=== PATIENT | female | born 1995 | race Caucasian/White ===

== ENCOUNTER 2017-08-23 22:31 | Emergency (ER) | payer MEDICAID ==
[2017-08-23] MEDS ORDERED: Azithromycin 250 MG Tab PO ONE (22:47)
[2017-08-23] MEDS ORDERED: Acetaminophen/Codeine 120-12 MG/5 ML Soln 118 ML Bot PO ONE (22:47)
[2017-08-23 23:10] VITALS: BP 120/78
--- NOTE | 2017-08-24 01:37 | ER ---
DATE SEEN: 08/23/2017 TIME SEEN: 2245 hours. CHIEF COMPLAINT: Cough. HISTORY OF PRESENT ILLNESS: This is a 22-year-old female with a cough for 3 days, sudden onset, associated with nasal congestion and fever, and also causes pain when she coughs. PAST MEDICAL HISTORY: No active medical problems. ALLERGIES: None. SOCIAL HISTORY: Does not smoke. PHYSICAL EXAMINATION: GENERAL: She is afebrile and normotensive. EARS, NOSE, AND THROAT: Negative. NECK: Supple. CHEST: Clear. CARDIOVASCULAR: Normal. IMPRESSION: Acute bronchitis. Treatment is Z-Praneeth and Tanja with codeine. /[id number] MORRIS/GUILLERMO
== END 2017-08-23 22:57 | disposition home or self-care (01) ==
LOC: FB.ED 22:31
DX: J20.9 Acute bronchitis, unspecified (principal)
CPT/HCPCS: 99282; A9270

== ENCOUNTER 2019-09-23 09:02 | Emergency (ER) | payer MEDICAID ==
--- NOTE | 2019-09-23 09:36 | EDM.PDOC ---
ED HPI GENERAL MEDICAL PROBLEM - General Chief Complaint: DAYTIME BABYSITTER Problem Stated Complaint: 6 WEEKS CRAMPING AND BLEEDING Time Seen by Provider: 09/23/19 09:32 Source of Information: Reports: Patient History Limitations: Reports: No Limitations - History of Present Illness INITIAL COMMENTS - FREE TEXT/NARRATIVE: [id number] @6wks by LMP (08/10/19) presents with pelvic cramping since last week, began to have vaginal spotting this morning. Cramping has not worsened. Blood type is A pos per [facility]. Location: Reports: Pelvis Severity: Mild Abdominal Pain Score (Numeric/FACES): 6 - Related Data Allergies Allergy/AdvReac Type Severity Reaction Status Date / Time No Known Allergies Allergy Verified 02/09/18 04:08 Home Meds: Home Meds No122/Iron/Folic Acid [ Multi Tablet] 1 tab PO DAILY 09/23/19 [History] Past Medical History DAYTIME BABYSITTER History: Reports: Other DAYTIME BABYSITTER History: [id number] - Past Surgical History HEENT Surgical History: Reports: Adenoidectomy, Tonsillectomy Female Surgical History: Reports: Section, Other (See Below) Other Female Surgeries/Procedures: X 2. Social & Family History - Family History Family Medical History: Noncontributory - Tobacco Use Smoking Status *Q: Never Smoker - Caffeine Use Caffeine Use: Reports: Soda - Alcohol Use Alcohol Use History: No ED ROS GENERAL - Review of Systems Review Of Systems: Comprehensive ROS is negative, except as noted in HPI. ED EXAM - Physical Exam Exam: See Below Exam Limited By: No Limitations General Appearance: Alert, WD/WN, No Apparent Distress Throat/Mouth: No Airway Compromise Head: Atraumatic, Normocephalic Neck: Full Range of Motion Respiratory/Chest: No Respiratory Distress, Lungs Clear Cardiovascular: Regular Rate, Rhythm, No Murmur GI/Abdominal Exam: Normal Bowel Sounds, Soft, No Distention, Tender (mild suprapubic) Extremities: Normal Range of Motion Neurological: Alert, Normal Cognition Psychiatric: Normal Affect, Normal Mood Skin Exam: Warm, Dry, Intact Course - Vital Signs Last Recorded V/S: Last Vital Signs Temp 36.8 C 09/23/19 09:14 Pulse 86 09/23/19 09:14 Resp 16 09/23/19 09:14 BP 112/71 07/27/20 09:14 Pulse Ox 100 09/23/19 09:14 - Orders/Labs/Meds Labs: Laboratory Tests 09/23/19 09/23/19 09/23/19 Range/Units 09:47 09:50 09:50 WBC 8.3 (4.5-12.0) X10-3/uL RBC 4.69 (3.23-5.20) x10(6)uL Hgb 13.4 (11.5-15.5) g/dL Hct 40.4 (30.0-51.3) % MCV 86.2 (80-96) fL MCH 28.6 (27.7-33.6) pg MCHC 33.2 (32.2-35.4) g/dL RDW 12.0 (11.5-15.5) % Plt Count 300 (125-369) X10(3)uL MPV 8.6 (7.4-10.4) fL Neut % (Auto) 70.3 (46-82) % Lymph % (Auto) 22.7 (13-37) % [place] % (Auto) 6.0 (4-12) % Eos % (Auto) 1 (1.0-5.0) % Baso % (Auto) 0 (0-2) % Neut # (Auto) 5.8 (1.6-8.3) # Lymph # (Auto) 1.9 (0.6-5.0) # [place] # (Auto) 0.5 (0.0-1.3) # Eos # (Auto) 0.1 (0.0-0.8) # Baso # (Auto) 0.0 (0.0-0.2) # Sodium 137 (135-145) mmol/L Potassium 3.6 (3.5-5.3) mmol/L Chloride 103 (100-110) mmol/L Carbon Dioxide 25 (21-32) mmol/L BUN 16 (7-18) mg/dL Creatinine 0.6 (0.55-1.02) mg/dL Est Cr Clr Drug Dosing 102.95 mL/min Estimated GFR (MDRD) > 60 (>60) BUN/Creatinine Ratio 26.7 H (9-20) Glucose 90 (80-116) mg/dL Calcium 8.8 (8.6-10.2) mg/dL HCG, Quant (<5) mIU/mL Urine Color Yellow (YELLOW) Urine Appearance Clear (CLEAR) Urine pH 6.0 (5.0-6.5) Ur Specific [place] 1.020 (1.010-1.025) Urine Protein Negative (NEGATIVE) mg/dL Urine Glucose (UA) Normal (NORMAL) mg/dL Urine Ketones Negative (NEGATIVE) mg/dL Urine Occult Blood Negative (NEGATIVE) Urine Nitrite Negative (NEGATIVE) Urine Bilirubin Negative (NEGATIVE) Urine Urobilinogen Normal (NEGATIVE) mg/dL Ur Leukocyte Esterase Negative (NEGATIVE) Urine WBC 0-5 (0-5) Ur Squamous Epith Cells Few H (NS,R,O) Urine Bacteria Few H (NS) 09/23/19 Range/Units 09:50 WBC (4.5-12.0) X10-3/uL RBC (3.23-5.20) x10(6)uL Hgb (11.5-15.5) g/dL Hct (30.0-51.3) % MCV (80-96) fL MCH (27.7-33.6) pg MCHC (32.2-35.4) g/dL RDW (11.5-15.5) % Plt Count (125-369) X10(3)uL MPV (7.4-10.4) fL Neut % (Auto) (46-82) % Lymph % (Auto) (13-37) % [place] % (Auto) (4-12) % Eos % (Auto) (1.0-5.0) % Baso % (Auto) (0-2) % Neut # (Auto) (1.6-8.3) # Lymph # (Auto) (0.6-5.0) # [place] # (Auto) (0.0-1.3) # Eos # (Auto) (0.0-0.8) # Baso # (Auto) (0.0-0.2) # Sodium (135-145) mmol/L Potassium (3.5-5.3) mmol/L Chloride (100-110) mmol/L Carbon Dioxide (21-32) mmol/L BUN (7-18) mg/dL Creatinine (0.55-1.02) mg/dL Est Cr Clr Drug Dosing mL/min Estimated GFR (MDRD) (>60) BUN/Creatinine Ratio (9-20) Glucose (80-116) mg/dL Calcium (8.6-10.2) mg/dL HCG, Quant 78624 (<5) mIU/mL Urine Color (YELLOW) Urine Appearance (CLEAR) Urine pH (5.0-6.5) Ur Specific [place] (1.010-1.025) Urine Protein (NEGATIVE) mg/dL Urine Glucose (UA) (NORMAL) mg/dL Urine Ketones (NEGATIVE) mg/dL Urine Occult Blood (NEGATIVE) Urine Nitrite (NEGATIVE) Urine Bilirubin (NEGATIVE) Urine Urobilinogen (NEGATIVE) mg/dL Ur Leukocyte Esterase (NEGATIVE) Urine WBC (0-5) Ur Squamous Epith Cells (NS,R,O) Urine Bacteria (NS) Departure - Departure Time of Disposition: 11:05 Disposition: Home, Self-Care 01 Condition: Good Clinical Impression: Threatened in first trimester - Discharge Information *PRESCRIPTION DRUG MONITORING PROGRAM REVIEWED*: No *COPY OF PRESCRIPTION DRUG MONITORING REPORT IN PATIENT ELI: Not Applicable Instructions: Threatened Miscarriage, [id number] Referrals: Margarito Valdez MD [Primary Care Provider] - 3 Days Forms: ED Department Discharge Additional Instructions: Rest, no intercourse or heavy lifting. Keep your appointment on 09/25/19 for an ultrasound. Return to the ER if you are soaking 1 pad per hour or more. Follow up with your primary physician in 2-3 days. Sepsis Event Note (ED) - Evaluation Sepsis Screening Result: No Definite Risk - Focused Exam Vital Signs: Vital Signs Temp Pulse Resp BP Pulse Ox 09/23/19 09:14 36.8 C 86 16 112/71 100
[2019-09-23 11:16] VITALS: BP 106/64; PULSE 81
== END 2019-09-23 11:15 | disposition home or self-care (01) ==
LOC: FB.ED 09:02
DX: O20.0 Threatened abortion (principal); Z3A.01 Less than 8 weeks gestation of pregnancy
CPT/HCPCS: 36415; 80048; 81001; 84702; 85025; 99284

== ENCOUNTER 2021-07-29 10:19 | Emergency (ER) | payer MEDICAID ==
[2021-07-29] MEDS ORDERED: Ondansetron 4 MG Tab.DIS PO STA (10:35)
[2021-07-29] MEDS ORDERED: Ketorolac 30 MG/ML SDV IM STA (10:35)
[2021-07-29 15:03] VITALS: BP 110/58; PULSE 65
== END 2021-07-29 11:20 | disposition home or self-care (01) ==
LOC: FB.ED 10:19
DX: G43.909 Migraine, unspecified, not intractable, without status migrainosus (principal)
CPT/HCPCS: 96372; 99282; 99283; J1885; Q0162